=== PATIENT | male | born 1990 | race Caucasian/White ===

== ENCOUNTER 2021-09-26 18:04 | Emergency (ER) | payer BC, MEDICAID ==
[2021-09-26] MEDS: Silver Sulfadiazine 1% Crm 50 GM Tube TOP ONE (18:35)
== END 2021-09-26 18:45 | disposition home or self-care (01) ==
LOC: VM.ED 18:04
DX: T23.252A Burn of second degree of left palm, initial encounter (principal); X19.XXXA Contact with other heat and hot substances, initial encounter; Y92.89 Other specified places as the place of occurrence of the external cause; Y99.0 Civilian activity done for income or pay
CPT/HCPCS: 99283; A9270